=== PATIENT | female | born 1975 | race Caucasian/White ===

== ENCOUNTER → 2019-05-26 | Outpatient (CLI) | payer MEDICARE ==
--- NOTE | 2019-05-26 16:32 | Diagnostic Imaging Report ---
INDICATION: Elevated serum calcium levels. Patient has previously had three of the four parathyroid glands removed in 2003. TECHNIQUE: Patient was administered 19.1 mCi technetium 99m sestamibi intravenously and imaging over the neck and upper chest was performed. Both planar and SPECT-CT imaging was performed. COMPARISON: No prior studies are available for comparison. FINDINGS: There is physiologic activity within the salivary glands. No definite thyroid uptake or thyroid tissue is visualized, likely on the basis of prior thyroidectomy. No abnormal focus of trace accumulation is seen in the thyroid bed or upper chest to suggest parathyroid adenoma. IMPRESSION: No evidence of parathyroid adenoma. Dictated by: Dictated on workstation # [id number]
== END ==
LOC: CARD 12:03
PROVIDERS: ATTEND Internal Medicine Nephrology
DX: E21.3 Hyperparathyroidism, unspecified (principal); E83.52 Hypercalcemia
CPT/HCPCS: 78072

== ENCOUNTER 2021-10-11 13:11 | Emergency (ER) | payer MEDICARE ==
[~2021-10-11] VITALS: Ht 170 cm; Wt 77.0 kg
[2021-10-11 14:06] LABS: BASOPHILS % (AUTO) 0 % (0-10); EOSINOPHILS # (AUTO) 0.1 10^3/uL (0.0-0.3); EOSINOPHILS % (AUTO) 0 % (0-10); HEMATOCRIT 30 % (35-52); HEMOGLOBIN 9.3 g/dL (11.5-16.0); LYMPHOCYTES # (AUTO) 0.6 10^3/uL (1.0-4.0); LYMPHOCYTES % (AUTO) 5 % (12-44); MEAN CORPUSCULAR HEMOGLOBIN 30 pg (25-34); MEAN CORPUSCULAR HGB CONC 32 g/dL (32-36); MEAN CORPUSCULAR VOLUME 96 fL (80-99); MEAN PLATELET VOLUME 10.8 fL (9.0-12.2); MONOCYTES # (AUTO) 1.2 10^3/uL (0.0-1.0); MONOCYTES % (AUTO) 8 % (0-12); NEUTROPHILS # (AUTO) 12.1 10^3/uL (1.8-7.8); NEUTROPHILS % (AUTO) 86 % (42-75); PLATELET COUNT 306 10^3/uL (130-400); WHITE BLOOD COUNT 14.1 10^3/uL (4.3-11.0)
[2021-10-11 14:26] LABS: BAND NEUTROPHILS 0 %; BASOPHILS % (MANUAL) 1 %; EOSINOPHILS % (MANUAL) 1 %; LYMPHOCYTES % (MANUAL) 4 %; MONOCYTES % (MANUAL) 6 %; NEUTROPHILS % (MANUAL) 88 %
[2021-10-11 14:27] LABS: BUN/CREATININE RATIO 14; CARBON DIOXIDE 16 MMOL/L (21-32); CHLORIDE 108 MMOL/L (98-107); CREATININE SERUM 2.79 MG/DL (0.60-1.30); GFR ESTIMATED 20; POTASSIUM 5.3 MMOL/L (3.6-5.0); SODIUM 133 MMOL/L (135-145)
[2021-10-11 14:28] LABS: ALANINE AMINOTRANSFERASE 14 U/L (0-55); ALBUMIN 3.5 GM/DL (3.2-4.5); ALKALINE PHOSPHATASE 77 U/L (40-136); BILIRUBIN,TOTAL 0.3 MG/DL (0.1-1.0); CALCIUM 10.6 MG/DL (8.5-10.1); GLUCOSE 169 MG/DL (70-105); TOTAL PROTEIN 6.6 GM/DL (6.4-8.2)
[2021-10-11 15:11] LABS: BILIRUBIN,URINE NEGATIVE (NEGATIVE); CLARITY,URINE CLEAR; COLOR,URINE YELLOW; GLUCOSE, URINE (UA) NEGATIVE (NEGATIVE); KETONES,URINE NEGATIVE (NEGATIVE); LEUKOCYTE ESTERASE ,URINE NEGATIVE (NEGATIVE); NITRITE,URINE NEGATIVE (NEGATIVE); PROTEIN,URINE 2+ (NEGATIVE)
[2021-10-11 15:20] LABS: BACTERIA,URINE NEGATIVE /HPF; RBC,URINE RARE /HPF; WBC,URINE 0-2 /HPF
[2021-10-11 15:21] LABS: AMORPHOUS SEDIMENT,UR FEW AMOR URATES /LPF; GRANULAR CASTS,URINE RARE /LPF; HYALINE CASTS, URINE 0-2 /LPF; SQUAMOUS EPITHELIAL CELL,UR 0-2 /HPF
[2021-10-11 15:30] LABS: AMPHETAMINE SCREEN, URINE NEGATIVE (NEGATIVE); BARBITURATE SCREEN URINE NEGATIVE (NEGATIVE); BENZODIAZEPINES SCREEN URINE NEGATIVE (NEGATIVE); CANNABINOID SCREEN, URINE NEGATIVE (NEGATIVE); COCAINE SCREEN URINE NEGATIVE (NEGATIVE); METHADONE STAT NEGATIVE (NEGATIVE); METHAMPHETAMINE SCREEN URINE S NEGATIVE (NEGATIVE); OPIATE SCREEN URINE NEGATIVE (NEGATIVE); OXYCODONE STAT NEGATIVE (NEGATIVE); PROPOXYPHENE STAT NEGATIVE (NEGATIVE); TRICYCLIC ANTIDEPRESSANTS SCRE NEGATIVE (NEGATIVE)
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
[2021-10-12] MEDS ORDERED: OLANZapine 5 MG ODT (ZyPREXA ZYDIS) PO STA (22:56)
[2021-10-14 16:15] LABS: HEMATOCRIT 30 % (35-52); HEMOGLOBIN 9.2 g/dL (11.5-16.0); MEAN CORPUSCULAR HEMOGLOBIN 30 pg (25-34); MEAN CORPUSCULAR HGB CONC 31 g/dL (32-36); MEAN CORPUSCULAR VOLUME 98 fL (80-99); PLATELET COUNT 304 10^3/uL (130-400); WHITE BLOOD COUNT 9.6 10^3/uL (4.3-11.0)
[2021-10-14 16:16] LABS: BASOPHILS % (AUTO) 0 % (0-10); EOSINOPHILS % (AUTO) 0 % (0-10); LYMPHOCYTES # (AUTO) 0.7 X 10^3 (1.0-4.0); LYMPHOCYTES % (AUTO) 7 % (12-44); MONOCYTES # (AUTO) 0.9 X 10^3 (0.0-1.0); MONOCYTES % (AUTO) 9 % (0-12); NEUTROPHILS % (AUTO) 83 % (42-75)
[2021-10-14 16:17] LABS: SMEAR SCAN COMMENT DIFF DONE ON 3.1
[2021-10-14 16:34] LABS: CREATININE SERUM 3.6 MG/DL (0.60-1.30); POTASSIUM 6.1 MMOL/L (3.6-5.0)
[2021-10-14 16:35] LABS: ALBUMIN 3.5 GM/DL (3.2-4.5); BILIRUBIN,TOTAL 0.3 MG/DL (0.1-1.0); CALCIUM 11.2 MG/DL (8.5-10.1); TOTAL PROTEIN 6.4 GM/DL (6.4-8.2)
[2021-10-14] MEDS ORDERED: NS IV 500 ML 500 ML IV ONE (16:45)
[2021-10-14] MEDS ORDERED: NS IV 1000 ML 1,000 ML IV STA (17:50)
[2021-10-14 18:11] LABS: CALCIUM 10.4 MG/DL (8.5-10.1); CREATININE SERUM 3.44 MG/DL (0.60-1.30); POTASSIUM 5.5 MMOL/L (3.6-5.0)
[2021-10-15] MEDS ORDERED: NS IV 1000 ML 1,000 ML ONE (04:32)
[2021-10-16 07:19] LABS: BASOPHILS % (AUTO) 0 % (0-10); EOSINOPHILS # (AUTO) 0.1 10^3/uL (0.0-0.3); EOSINOPHILS % (AUTO) 1 % (0-10); HEMATOCRIT 29 % (35-52); HEMOGLOBIN 8.8 g/dL (11.5-16.0); LYMPHOCYTES # (AUTO) 1.4 10^3/uL (1.0-4.0); LYMPHOCYTES % (AUTO) 14 % (12-44); MEAN CORPUSCULAR HEMOGLOBIN 30 pg (25-34); MEAN CORPUSCULAR HGB CONC 31 g/dL (32-36); MEAN CORPUSCULAR VOLUME 98 fL (80-99); MEAN PLATELET VOLUME 9.6 fL (9.0-12.2); MONOCYTES # (AUTO) 1.4 10^3/uL (0.0-1.0); MONOCYTES % (AUTO) 14 % (0-12); NEUTROPHILS # (AUTO) 7.5 10^3/uL (1.8-7.8); NEUTROPHILS % (AUTO) 71 % (42-75); PLATELET COUNT 302 10^3/uL (130-400); WHITE BLOOD COUNT 10.5 10^3/uL (4.3-11.0)
[2021-10-16 07:38] LABS: ALBUMIN 3.3 GM/DL (3.2-4.5); BILIRUBIN,TOTAL 0.2 MG/DL (0.1-1.0); CALCIUM 10.3 MG/DL (8.5-10.1); CREATININE SERUM 3.41 MG/DL (0.60-1.30)
[2021-10-16 09:23] VITALS: BP 126/61
== END 2021-10-16 09:45 | disposition short-term general hospital (02) ==
LOC: EDUNIT# 13:11 → ER FS 13:13
DX: F29 Unspecified psychosis not due to a substance or known physiological condition (principal); N18.9 Chronic kidney disease, unspecified; Z94.0 Kidney transplant status; Z20.822 Contact with and (suspected) exposure to COVID-19
CPT/HCPCS: 36415 ×3; 51702; 80048; 80053 ×3; 80306; 81000; 85007; 85025 ×2; 85027; 87636 ×2; 93005; 99285; G0480; 80320

== ENCOUNTER 2023-07-04 10:27 | Outpatient (CLI) | payer MEDICARE ==
[~2023-07-04] VITALS: Ht 154.9 cm; Wt 77.0 kg
[2023-07-04 10:44] VITALS: BP 146/86
[2023-07-04] MEDS ORDERED: IRON SUCROSE 200 MG/10 ML VIAL IV ONE (11:00)
== END 2023-07-04 12:25 | disposition home or self-care (01) ==
LOC: SDC 10:27
PROVIDERS: ATTEND Internal Medicine Nephrology
DX: D50.8 Other iron deficiency anemias (principal)
CPT/HCPCS: 96365